=== PATIENT | male | born 1970 | race Caucasian/White ===

== ENCOUNTER 2017-03-26 22:21 | Emergency (ER) | payer SELFPAY ==
[~2017-03-26] VITALS: Ht 167.6 cm; Wt 76.3 kg
[2017-03-26 22:27] VITALS: BP 120/81
--- NOTE | 2017-03-27 02:30 | NUR ---
TO ER OF1
--- NOTE | 2017-03-27 02:34 | NUR ---
Patient being evaluated by physician.
[2017-03-27] MEDS ORDERED: KETOROLAC 60 MG/2 ML VIAL IM ONE (02:40)
[2017-03-27 04:10] VITALS: BP 117/76
== END 2017-03-27 04:10 | disposition home or self-care (01) ==
LOC: MED 22:21
DX: G44.209 Tension-type headache, unspecified, not intractable (principal)
CPT/HCPCS: 96372; 99283; J1885